=== PATIENT | female | born 1985 | race African-American/Black ===

== ENCOUNTER → 2016-06-10 | Outpatient (CLI) | payer OTHER ==
--- NOTE | ~2016-06-10 | CT71 ---
[facility] A Service of [facility] RADIOLOGY TEXT RESULTS PATIENT: TOMY GARCIA LOCATION: CCAT : 89 UNIT #: [id number] AGE: [address]: Nick Harris MD SEX: F ORDER DR: [id number] [address] [address] [id number] O MR#: [id number] Acc #: [id number] NAME: TOMY GARCIA : 1985 SEX: F STUDY DATE/TIME: 06/10/2016 7:43 UNIT: CCAT ROOM: STUDY DESCRIPTION: CT Head Wo Contrast Attending Physician: Nick Harris M.D. Ordering Physician: Nick Harris M.D. Primary Care Physician: Nick Harris M.D. MEDICAL IMAGING REPORT This report is preliminary unless electronic signature is present EXAM Head CT no contrast DATE OF STUDY 06/09/2016 PROCEDURE Axial unenhanced head CT. This CT exam was performed with one or more of the following radiation dose reduction techniques: automatic exposure control, adjustment of mA and/or kV according to patient size, and iterative reconstruction. CLINICAL HISTORY Bilateral temporal pain for 15 years. FINDINGS Brain parenchymal density is normal. There is no hemorrhage or hydrocephalus or extraaxial fluid collection. The extracranial soft tissues are normal and the skull base and calvarium are normal. IMPRESSION Normal negative unenhanced head CT. Dictated by... Ganesh Mccauley M.D. THIS IS AN ELECTRONICALLY VERIFIED REPORT Ganesh Mccauley M.D. at 06/13/2016 5:01 PM TEV/to TD: 06/10/2016 11:56 JOB #: [id number] [facility] A Service of [facility] RADIOLOGY TEXT RESULTS PATIENT: TOMY GARCIA LOCATION: CCAT : 89 UNIT #: [id number] AGE: [address]: Nick Harris MD SEX: F ORDER DR: MEDICAL IMAGING REPORT Page 1 of 1 COPY
== END | disposition home or self-care (01) ==
LOC: CCAT 07:24
DX: R51 Headache (principal)
CPT/HCPCS: 70450

== ENCOUNTER 2016-10-13 06:44 | Emergency (ER) | payer OTHER ==
[~2016-10-13] VITALS: Ht 175.3 cm; Wt 77.1 kg
== END 2016-10-13 09:00 | disposition home or self-care (01) ==
LOC: CED 06:44 → CFTX 06:44
DX: M25.532 Pain in left wrist (principal); M25.531 Pain in right wrist
CPT/HCPCS: 29125; 99283